=== PATIENT | female | born 1970 | race Caucasian/White ===

== ENCOUNTER 2021-07-26 09:33 | Emergency (ER) | payer BC, OTHER ==
[~2021-07-26] VITALS: Ht 149.9 cm; Wt 64.0 kg
[~2021-07-26 09:33] MED LIST: LEVO75TA7
[2021-07-26] MEDS ORDERED: LORAZEPAM 1MG TABLET PO ONE (10:00)
[2021-07-26] MEDS ORDERED: MECLIZINE 25MG TABLET PO ONE (10:00)
[2021-07-26] MEDS ORDERED: MECL-159 MT (10:16)
[2021-07-26 11:00] VITALS: BP 105/59
== END 2021-07-26 13:15 | disposition home or self-care (01) ==
LOC: ER 09:33
DX: R42 Dizziness and giddiness (principal); Z88.6 Allergy status to analgesic agent
CPT/HCPCS: 93005; 99283; J8597